=== PATIENT | female | born 1950 | race Caucasian/White ===

== ENCOUNTER 2022-07-15 09:20 | Inpatient (IN) ==
[2022-07-15 09:57] LABS: Basophils # (auto) 0.07 K/uL (0-0.2); Basophils % (auto) 0.4 %; Eosinophils # (auto) 0.07 K/uL (0-0.50); Eosinophils % (auto) 0.4 %; Hematocrit (blood only) 41.4 % (34.1-44.9); Hemoglobin 14.1 g/dl (12.0-16.0); Immature Granulocytes # (auto) 0.11 K/uL (0.00-0.02); Immature Granulocytes % (auto) 0.6 %; Lymphocytes % (auto) 10.3 %; Mean Corpuscular Hemoglobin 31.4 pg (25.0-34.0); Mean Corpuscular Hgb Conc 34.1 g/dL (32.0-36.0); Mean Corpuscular Volume 92.2 fL (80.0-100.0); Mean Platelet Volume 9.3 fL (9.4-12.3); Monocytes # (auto) 1.12 K/uL (0.24-0.82); Monocytes % (auto) 5.8 %; Neutrophils # (auto) 16.05 K/uL (1.4-6.5); Neutrophils % (auto) 82.5 %; Platelet Count 258 K/uL (130-400); RDW Coefficient of Variation 12.6 % (11.5-14.5); RDW Standard Deviation 42.2 fL (36.4-46.3); Red Blood Count 4.49 M/uL (3.93-5.22); White Blood Count 19.42 K/ul (4.8-10.8)
[2022-07-15] MEDS ORDERED: ASPIRIN CHEW 324 MG PO STA (10:02)
--- NOTE | 2022-07-15 10:16 | Emergency Department Note ---
Impression & Plan Chest pain, Pericarditis, Leukocytosis ED Provider Note NAME: FARHANA KELLY AGE: 71 SEX: F : 1950 ARRIVES VIA: Walk-In INFORMANT: Patient ED PROVIDER(S): Conor Rubin DO CHIEF COMPLAINT: chest pain HPI: Patient is a 71-year-old female who presents the ER for midsternal chest pain which she describes as a pressure. It is worse with breathing. It also ch anges slightly with positions. It started this morning around 530 and woke her up from sleep. She denies any current arm or jaw pain but when she woke up she did have some right arm pain which lasted for about 3 minutes. No belly pain, nausea, vomiting, or diarrhea. No upper respiratory symptoms. No dysuria, urgency, or frequency. No other exacerbating or remitting factors. She has never had this before. She has traveled from [place] down the [place] for the weekend. She does have a remote history of a questionable cancer. Patient denies diabetes, hypertension, hyperlipidemia, CAD, history of sudden at a young age, and smoking. ROS: See above HPI for pertinent positives & negatives. A total of 10 systems reviewed and were otherwise negative. PAST MEDICAL HISTORY:See Below PAST SURGICAL HISTORY:See Below FAMILY HISTORY:See Below SOCIAL HISTORY:See Below HOME MEDICATIONS:See Below ALLERGIES:See Below VITALS:See Below PHYSICAL EXAMINATION: GENERAL: Sitting up in bed, alert, well appearing, well nourished, no distress, non-toxic EYE EXAM: normal conjunctiva. OROPHARYNX:mucous membranes are moist NECK: supple, no nuchal rigidity, no adenopathy, non-tender CHEST: Mild reproducible anterior chest wall pain. LUNGS: Clear to auscultation. Normal chest wall mechanics HEART: no murmurs, S1 normal and S2 normal ABDOMEN: abdomen soft, non-tender, normo-active bowel sounds, no masses, no rebound or guarding. UPPER EXTREMITIES: upper extremities are grossly normal. LOWER EXTREMITIES: No pitting edema. NEURO EXAM: Normal sensorium, cranial nerves II-XII grossly intact, normal speech, no gross weakness of arms, no gross weakness of legs. MEDICAL DECISION MAKING: Patient is a 71-year-old female who presents ER for above-stated complaint. IV was established blood work was obtained. Labs show a leukocytosis of 19,000. No significant anemia. D-dimer was slightly up at 620. BMP with a mild hypokalemia at 3.2. Calcium slightly elevated 10.5. LFTs bilirubin and troponin were unremarkable. Lipase was normal. CT angio of the chest showed thickening of the pericardium. There was some SC depressions on the EKG likely consistent with a pericarditis. Patient was given Toradol IV and this did help out. She also given aspirin. Nitro did also help with the pain as well as nitro was given initially upon arrival. With the leukocytosis, SC depressions in the CT suggesting pericarditis [facility] Dr[facility] Donald Dickson. Did add on a Lyme sed and CRP which are pending. No recent vaccinations that she can think of. Patient was updated bedside. Triage Nursing notes reviewed. Limited review of prior medical records performed Vital Signs: reviewed and remarkable for HTN Differential diagnosis: Cardiac ischemia, aortic dissection, pulmonary embolism, pneumothorax, pneumonia, pericarditis, myocarditis, esophageal rupture, GERD, cholecystitis, pancreatitis, musculoskeletal, as well as other pathologies. ER treatment provided: See below Diagnostics interpreted by me: ECG: Sinus rhythm rate of 83 Normal axis No PVCs SC depression Nonspecific ST wave changes in the inferior leads QTC 427 Cardiac Monitoring: An order was placed for continuous cardiac monitoring. The monitor shows a rate of 90 with sinus rhythm. Laboratory studies: As stated above and show below. Imaging studies: CT angio of the chest suggest thickening of the pericardium Consultation(s): Discussed with going from [facility] service Procedures: none Critical Care: None Past Med/Surg History Social History Smoking Status: Never smoker Feels Safe at Home: Yes Results & Data (ED) Vital Signs Vital Signs - 24 hr 07/15/22 09:24 07/15/22 09:51 07/15/22 09:51 Temperature 36.7 C Temperature Source Oral Pulse Rate 93 H Pulse Rate [Apical] Pulse Rhythm [Apical] Respiratory Rate 18 Respiratory Effort / Characteristics Respiratory Depth Blood Pressure 146/93 H Blood Pressure [Left Arm] Blood Pressure Mean 110 Blood Pressure Mean [Left Arm] Pulse Oximetry 100 97 97 Oxygen Delivery Method Room Air Room Air Sepsis Recent Fever Within 48 Hours No Sepsis New/Unexplained Change in Mental Status No Sepsis Action Taken by Nursing No Action Required 07/15/22 10:20 07/15/22 10:35 07/15/22 11:20 Temperature Temperature Source Pulse Rate Pulse Rate [Apical] 78 75 Pulse Rhythm [Apical] Regular Respiratory Rate 16 16 Respiratory Effort / Characteristics Non-Labored Non-Labored Respiratory Depth Normal Normal Blood Pressure Blood Pressure [Left Arm] 142/81 H 123/71 120/70 Blood Pressure Mean Blood Pressure Mean [Left Arm] 101 88 86 Pulse Oximetry 97 96 Oxygen Delivery Method Room Air Room Air Sepsis Recent Fever Within 48 Hours Sepsis New/Unexplained Change in Mental Status Sepsis Action Taken by Nursing 07/15/22 11:40 07/15/22 11:52 Temperature Temperature Source Pulse Rate Pulse Rate [Apical] 83 Pulse Rhythm [Apical] Respiratory Rate 16 Respiratory Effort / Characteristics Non-Labored Respiratory Depth Normal Blood Pressure Blood Pressure [Left Arm] 108/67 115/69 Blood Pressure Mean Blood Pressure Mean [Left Arm] 80 84 Pulse Oximetry 96 Oxygen Delivery Method Room Air Sepsis Recent Fever Within 48 Hours Sepsis New/Unexplained Change in Mental Status Sepsis Action Taken by Nursing Laboratory Data Result diagrams: 07/15/22 09:45 07/15/22 09:45 Lab Results 07/15/22 07/15/22 07/15/22 Range/Units 09:45 09:45 09:45 WBC 19.42 H (4.8-10.8) K/ul RBC 4.49 (3.93-5.22) M/uL Hgb 14.1 (12.0-16.0) g/dl Hct 41.4 (34.1-44.9) % MCV 92.2 (80.0-100.0) fL MCH 31.4 (25.0-34.0) pg MCHC 34.1 (32.0-36.0) g/dL RDW Std Deviation 42.2 (36.4-46.3) fL RDW Coeff of Juan 12.6 (11.5-14.5) % Plt Count 258 (130-400) K/uL MPV 9.3 L (9.4-12.3) fL Immature Gran % (Auto) 0.6 % Neut % (Auto) 82.5 % Lymph % (Auto) 10.3 % [place] % (Auto) 5.8 % Eos % (Auto) 0.4 % Baso % (Auto) 0.4 % Neut # (Auto) 16.05 H (1.4-6.5) K/uL Lymph # (Auto) 2.00 (1.2-3.4) K/uL [place] # (Auto) 1.12 H (0.24-0.82) K/uL Eos # (Auto) 0.07 (0-0.50) K/uL Baso # (Auto) 0.07 (0-0.2) K/uL Immature Gran # (Auto) 0.11 H (0.00-0.02) K/uL ESR (0-30) mm/hr D-Dimer 620 H* (0-500) ug/L FEU Sodium 142 (136-145) mmol/L Potassium 3.2 L (3.5-5.1) mmol/L Chloride 102 (98-107) mmol/L Carbon Dioxide 31 (21-32) mmol/L Anion Gap 9 (3-11) BUN 18 (6-23) mg/dl Creatinine 0.89 (0.6-1.2) mg/dl Est Cr Clr Drug Dosing 51.4 ml/min Est GFR ( Amer) 75.0 ml/min Est GFR (Non-Af Amer) 64.7 ml/min BUN/Creatinine Ratio 20.2 H (10-20) Glucose 106 H (70-99(Fasting)) mg/dl Calcium 10.5 H (8.5-10.1) mg/dl Total Bilirubin 0.5 (0.2-1.0) mg/dl AST 23 (13-39) U/L ALT 15 (7-52) U/L Alkaline Phosphatase 88 (34-104) U/L Troponin I High Sens 3.6 (0-14) pg/ml Total Protein 7.4 (6.0-8.3) gm/dl Albumin 4.5 (3.4-5.0) gm/dl Globulin 2.9 (2.5-4.0) gm/dl Albumin/Globulin Ratio 1.6 (0.9-2) Lipase 31 (11-82) U/L 07/15/22 Range/Units 09:45 WBC (4.8-10.8) K/ul RBC (3.93-5.22) M/uL Hgb (12.0-16.0) g/dl Hct (34.1-44.9) % MCV (80.0-100.0) fL MCH (25.0-34.0) pg MCHC (32.0-36.0) g/dL RDW Std Deviation (36.4-46.3) fL RDW Coeff of Juan (11.5-14.5) % Plt Count (130-400) K/uL MPV (9.4-12.3) fL Immature Gran % (Auto) % Neut % (Auto) % Lymph % (Auto) % [place] % (Auto) % Eos % (Auto) % Baso % (Auto) % Neut # (Auto) (1.4-6.5) K/uL Lymph # (Auto) (1.2-3.4) K/uL [place] # (Auto) (0.24-0.82) K/uL Eos # (Auto) (0-0.50) K/uL Baso # (Auto) (0-0.2) K/uL Immature Gran # (Auto) (0.00-0.02) K/uL ESR 12 (0-30) mm/hr D-Dimer (0-500) ug/L FEU Sodium (136-145) mmol/L Potassium (3.5-5.1) mmol/L Chloride (98-107) mmol/L Carbon Dioxide (21-32) mmol/L Anion Gap (3-11) BUN (6-23) mg/dl Creatinine (0.6-1.2) mg/dl Est Cr Clr Drug Dosing ml/min Est GFR ( Amer) ml/min Est GFR (Non-Af Amer) ml/min BUN/Creatinine Ratio (10-20) Glucose (70-99(Fasting)) mg/dl Calcium (8.5-10.1) mg/dl Total Bilirubin (0.2-1.0) mg/dl AST (13-39) U/L ALT (7-52) U/L Alkaline Phosphatase (34-104) U/L Troponin I High Sens (0-14) pg/ml Total Protein (6.0-8.3) gm/dl Albumin (3.4-5.0) gm/dl Globulin (2.5-4.0) gm/dl Albumin/Globulin Ratio (0.9-2) Lipase (11-82) U/L Administered Medications Nitroglycerin (Nitroglycerin Sl 0.4 Mg/Tab Tab) 0.4 mg SL PRN PRN PRN Reason: Chest Pain Stop: 08/14/22 10:01 Last Admin: 07/15/22 11:20 Dose: 0.4 mg Documented By: Admin: 07/15/22 10:24 Dose: 0.4 mg Documented By: RADHA Discontinued Medications Aspirin (Aspirin Chew 324 Mg) 324 mg PO NOW STA Stop: 07/15/22 10:03 Last Admin: 07/15/22 10:23 Dose: 324 mg Documented By: RADHA Ketorolac Tromethamine (Ketorolac Tromethamine 15 Mg/Ml Vial) 15 mg IV NOW ONE Stop: 07/15/22 11:31 Last Admin: 07/15/22 11:36 Dose: 15 mg Documented By: RADHA Imaging Data Radiologist's Impression: Chest X-Ray 07/15/22 09:49 XR chest 1V portable CLINICAL HISTORY: Shortness of breath. Atypical chest pain. COMPARISON STUDY: No previous studies for comparison. FINDINGS: Lung volumes are normal. Lungs are clear. There is no pneumothorax or pleural effusion. Cardiac size is normal. Mediastinal contours are normal. There is no evidence for pulmonary edema. IMPRESSION: No acute cardiopulmonary findings. ACT 112: Negative or not required by law. Electronically signed by: Ric Castillo M.D. 07/15/2022 10:17 AM Chest CTA 07/15/22 11:42 CHEST CTA for PULMONARY ARTERIES CT DOSE: 269.04 mGy.cm HISTORY: Atypical chest pain. Chest pressure. TECHNIQUE: Multiaxial CT images of the chest were performed following the intravenous administration of contrast to evaluate the pulmonary arteries. Maximal intensity projection images were also obtained. A dose lowering technique was utilized adhering to the principles of ALARA. COMPARISON STUDY: Normal caliber thoracic aorta with no evidence for dissection. FINDINGS: Nondiagnostic evaluation the right lower lobe subsegmental pulmonary arteries due to the motion artifact. However, the remaining pulmonary arteries show no filling defects to suggest a pulmonary embolus. Normal caliber thoracic aorta with no evidence for a dissection. The heart is normal in size. There is no pleural effusions. Mild pericardial thickening is noted without significant pericardial fluid. Limited views of the upper abdomen demonstrate normal liver, spleen, and adrenal glands. Normal caliber esophagus. No mediastinal or hilar lymphadenopathy. There is an 11 mm cystic focus adjacent to the right C5-C6 neural foramen and a 2 cm cystic focus adjacent to the left T11-T12 neural foramen. These are likely benign and may represent small lateral thoracic meningocele or perineural cysts. These are of doubtful clinical significance. No fractures within the visualized osseous structures. No pneumothorax. A single partially opacified distal lingular bronchus. Mild dependent changes seen within the lung bases. Otherwise, no focal lung consolidations to suggest a pneumonia. No evidence for pulmonary edema. IMPRESSION: 1. No evidence for a pulmonary embolus. 2. Mild thickening of the pericardium. This may represent a pericarditis. No significant pericardial effusion at this time. 3. No focal lung consolidations to suggest a pneumonia. ACT 112: Negative or not required by law. Electronically signed by: Nirav Dutta M.D. 07/15/2022 1:38 PM Discharge Plan Visit Data Chief Complaint: Chest Pain Stated Complaint: CHEST PAIN ED Provider: Conor Rubin Discharge Problem: Chest pain, Pericarditis, Leukocytosis Forms Stand Alone Forms: [facility] Referrals Referrals: PCP,NO [Primary Care Provider] -
[2022-07-15 10:18] LABS: Albumin Globulin Ratio 1.6 (0.9-2); Albumin Level 4.5 gm/dl (3.4-5.0); BUN Creatinine Ratio 20.2 (10-20); Bilirubin,Total 0.5 mg/dl (0.2-1.0); Calcium 10.5 mg/dl (8.5-10.1); Creatinine Clr Calc Pharmacy 51.4 ml/min; Est GFR (Non-African American) 64.7 ml/min; Globulin 2.9 gm/dl (2.5-4.0); Potassium 3.2 mmol/L (3.5-5.1); Total Protein 7.4 gm/dl (6.0-8.3)
--- NOTE | 2022-07-15 10:19 | XRay Report ---
XR chest 1V portable CLINICAL HISTORY: Shortness of breath. Atypical chest pain. COMPARISON STUDY: No previous studies for comparison. FINDINGS: Lung volumes are normal. Lungs are clear. There is no pneumothorax or pleural effusion. Car diac size is normal. Mediastinal contours are normal. There is no evidence for pulmonary edema. IMPRESSION: No acute cardiopulmonary findings. ACT 112: Negative or not required by law. Electronically signed by: Ric Castillo M.D. 07/15/2022 10:17 AM
[2022-07-15 10:23] LABS: Troponin I High Sensitivity 3.6 pg/ml (0-14)
[2022-07-15] MEDS: NITROGLYCERIN SL 0.4 MG/TAB TAB SL PRN ×2 (10:24→11:20)
[2022-07-15] MEDS ORDERED: KETOROLAC TROMETHAMINE 15 MG/ML VIAL IV ONE (11:30)
[2022-07-15 11:36] LABS: D Dimer 620 ug/L FEU (0-500)
--- NOTE | 2022-07-15 13:40 | CT Scan Report ---
CHEST CTA for PULMONARY ARTERIES CT DOSE: 269.04 mGy.cm HISTORY: Atypical chest pain. Chest pressure. TECHNIQUE: Multiaxial CT images of the chest were performed following the intravenous administration of contrast to evaluate the pulmonary arteries. Maximal intensity projection images were also obtaine d. A dose lowering technique was utilized adhering to the principles of ALARA. COMPARISON STUDY: Normal caliber thoracic aorta with no evidence for dissection. FINDINGS: Nondiagnostic evaluation the right lower lobe subsegmental pulmonary arteries due to the mo tion artifact. However, the remaining pulmonary arteries show no filling defects to suggest a pulmona ry embolus. Normal caliber thoracic aorta with no evidence for a dissection. The heart is normal in s ize. There is no pleural effusions. Mild pericardial thickening is noted without significant pericard ial fluid. Limited views of the upper abdomen demonstrate normal liver, spleen, and adrenal glands. N ormal caliber esophagus. No mediastinal or hilar lymphadenopathy. There is an 11 mm cystic focus dann cent to the right C5-C6 neural foramen and a 2 cm cystic focus adjacent to the left T11-T12 neural fo ramen. These are likely benign and may represent small lateral thoracic meningocele or perineural cys ts. These are of doubtful clinical significance. No fractures within the visualized osseous structure s. No pneumothorax. A single partially opacified distal lingular bronchus. Mild dependent changes see n within the lung bases. Otherwise, no focal lung consolidations to suggest a pneumonia. No evidence for pulmonary edema. IMPRESSION: 1. No evidence for a pulmonary embolus. 2. Mild thickening of the pericardium. This may represent a pericarditis. No significant pericardial effusion at this time. 3. No focal lung consolidations to suggest a pneumonia. ACT 112: Negative or not required by law. Electronically signed by: Nirav Dutta M.D. 07/15/2022 1:38 PM
--- NOTE | 2022-07-15 13:40 | History & Physical Report ---
Date of Service July 15, 2022 Assessment & Plan (1) Pericarditis: (2) Chest pain: (3) HTN (hypertension): (4) HLD (hyperlipidemia): (5) Leukocytosis: Plan: - Admit to PCU/tele - CTA is negative for PE with elevated d-dimer 620 on admission, negative troponin at 3.6 but will trend enzymes. - CTA is concerning for pericarditis with inflammation seen on imaging, no recent viral illness that pt is aware of, no known tick bites, Lyme and tick borne panel are pending - 2D echo ordered - Consider cardiology consultation pending results - Checking CRP and ESR - WBC elevated at 19 K with a left shift but no other symptoms than the aforementioned chest pain. Will trend. Afebrile. No respiratory or GI symptoms suspicious for other infection. Follow to ensure improves. - Pain ? worse for her while lying down, improved after aspirin, nitro and futher improved with toradol IV given in the ER. - Start scheduled ibuprofen and colchicine for pericarditis treatment - Follow mag, added - A1C and lipid panel for completeness - EKG reviewed, repeat in am - Cont HCTZ and losartan as per her home meds. Missed morning meds today. - Cont rosuvastain for HLD - Increase pantoprazole while on NSAIDs and colchicine. - Potassium 40 meq now for K+ 3.2 on admission - Allow diet DVT Ppx: teds, scds, ambulatory CODE: Full code Dispo: Observation on tele History of Present Illness Chief Complaint: Chest pain Primary Care Provider: NO PCP This is a 71 yo F with PMhx of HTN, HLD with recently started rosuvastatin in February with significant improvement, Cancerous nasal polyp in 2003 s/p removal, and hx of palpitations which she has been following with cardiology for. She and her are in town from [place] to visit her 100 yo Father. Mrs. Ochoa reports this morning woke up with chest pain in the middle chest region with tingling in the right arm. The pain was constant rated 7/10, and lasted several hours until came to the ER and improved with nitroglycerin. She thought that her arm pain was due to clothing getting wrapped up around her arm while sleeping. This arm pain improved with getting up and showering this morning. She admits to shortness of breath on exertion this morning a few times, lightheadedness and dizziness. She states this improved with standing still and waiting a few minutes. Denies palpitations. Denies ever having this type of pain before. Follows with Dr. Dalton Matias, cardiology, once per year and last saw him in June. She started seeing him in 2003 or 2004 due to palpitations when she was observed in the hospital at that time. She is due for a exercise stress test next year as this is performed every other year, previously she has done well on stress tests. No new medications. She has had several trials on different statins and had to be switched off because of dizziness, but has been tolerating rosuvastatin 10 mg daily well. She does not exercise routinely but reports an active lifestyle. Does not smoke or chew tobacco. No hx of ilicit drug use. Allergies: oak pollen, medical tape, statins Surgical Hx: D&C prior to hysterectomy in May 1995, Cataract surgery in May 2011 and January 2017, Family Hx: HTH, HLD Allergies Allergy/AdvReac Type Severity Reaction Status Date / Time adhesive tape Allergy Mild Rash Verified 07/15/22 14:56 oak pollen Allergy Mild Uncoded 07/15/22 14:56 statin AdvReac Mild dizziness Uncoded 07/15/22 14:56 Home Medications Medication Instructions Recorded Confirmed Type Centrum Women 1 tab PO DAILY 07/15/22 07/15/22 History ascorbic acid (vitamin C) 125 mg 125 mg PO DAILY 07/15/22 07/15/22 History chewable tablet (Vitamin C) aspirin 81 mg tablet 81 mg PO DAILY 07/15/22 07/15/22 History azelastine 137 mcg (0.1 %) nasal 1 spray intranasal BID 07/15/22 07/15/22 History spray aerosol calcium carbonate 600 mg-vitamin 1 tab PO DAILY 07/15/22 07/15/22 History D3 5 mcg (200 unit) tablet clobetasol 0.05 % topical ointment 1 applic topical DAILY PRN Rash 07/15/22 07/15/22 History fluticasone propionate 50 1 spray intranasal BID 07/15/22 07/15/22 History mcg/actuation nasal spray,suspension hydrochlorothiazide 12.5 mg tablet 12.5 mg PO DAILY 07/15/22 07/15/22 History losartan 50 mg tablet 50 mg PO DAILY 07/15/22 07/15/22 History magnesium oxide 400 mg PO DAILY 07/15/22 07/15/22 History pantoprazole 40 mg tablet,delayed 40 mg PO DAILY 07/15/22 07/15/22 History release psyllium husk 0.4 gram capsule 0.4 g PO BID 07/15/22 07/15/22 History (Metamucil) rosuvastatin 10 mg tablet 10 mg PO DAILY 07/15/22 07/15/22 History vitamin E 400 unit tablet 400 unit PO DAILY 07/15/22 07/15/22 History Past Med/Surg History Medical History HLD (hyperlipidemia) HTN (hypertension) Palpitations Surgical History Hx of hysterectomy Hx of nasal polypectomy Family History Other Dyslipidemia Hypertension Social History Smoking Status: Never smoker Hx Alcohol Use: No Hx Substance Use: No Current Living Situation: Spouse Feels Safe at Home: Yes Review of Systems Review of Systems: Constitutional: No fever, sweats or chills Eyes: No diplopia, no worsening or blurred vision ENT: normal hearing, no trouble swallowing Respiratory: No cough, sputum, dyspnea at rest or on exertion Cardiovascular: No current chest pain, tightness or palpitations. See HPI. Abdomen: No pain, nausea, vomiting, diarrhea or constipation Musculoskeletal: No joint pain, calf pain, swelling Neurologic: No weakness, numbness/tingling, or balance problems Psychiatric: No anxiety or depression Skin: No rash or itch Physical Exam Physical Exam: General: awake, alert, no apparent distress, + appears younger than stated age Head: Normocephalic, atraumatic ENT: PERRL, EOMI, no pharyngeal exudate, mucous membranes moist Chest: Clear to auscultation, on room air, no adventitious breath sounds Cardiac: No pain with palpation of the chest wall, No pain with leaning forward, + pain with taking deep breaths, Regular rate and rhythm, no murmur, no JVD, normal peripheral pulses, good capillary refill Abdominal: NABS x 4 quadrants, soft, nondistended, nontender to palpation, no rebound or guarding Extremities: Normal inspection, no peripheral edema or erythema, calfs nontender to palpation Psych: Normal mood and affect Neuro: AAO x 3, strength intact bilaterally and rated 5/5, no motor deficits, speech is clear, no peripheral sensory deficits Results & Data Results & Data ([facility]) Vital Signs (Past 12 Hours) Vital Signs Temp Pulse Pulse Resp BP BP Pulse Ox 07/15/22 11:52 83 16 115/69 96 07/15/22 11:40 108/67 07/15/22 11:20 120/70 07/15/22 10:35 75 16 123/71 96 07/15/22 10:20 78 16 142/81 H 97 07/15/22 09:51 97 07/15/22 09:51 97 07/15/22 09:24 36.7 C 93 H 18 146/93 H 100 O2 Del Method 07/15/22 11:52 Room Air 07/15/22 11:40 07/15/22 11:20 07/15/22 10:35 Room Air 07/15/22 10:20 Room Air 07/15/22 09:51 07/15/22 09:51 Room Air 07/15/22 09:24 Room Air Laboratory Results 07/15/22 07/15/22 07/15/22 09:45 09:45 09:45 WBC RBC Hgb Hct MCV MCH MCHC RDW Std Deviation RDW Coeff of Juan Plt Count MPV Immature Gran % (Auto) Neut % (Auto) Lymph % (Auto) [place] % (Auto) Eos % (Auto) Baso % (Auto) Neut # (Auto) Lymph # (Auto) [place] # (Auto) Eos # (Auto) Baso # (Auto) Immature Gran # (Auto) ESR 12 D-Dimer 620 H* Sodium Potassium Chloride Carbon Dioxide Anion Gap BUN Creatinine Est Cr Clr Drug Dosing Est GFR ( Amer) Est GFR (Non-Af Amer) BUN/Creatinine Ratio Glucose Calcium Total Bilirubin AST ALT Alkaline Phosphatase Troponin I High Sens C-Reactive Protein < 0.50 Total Protein Albumin Globulin Albumin/Globulin Ratio Lipase 07/15/22 07/15/22 09:45 09:45 WBC 19.42 H RBC 4.49 Hgb 14.1 Hct 41.4 MCV 92.2 MCH 31.4 MCHC 34.1 RDW Std Deviation 42.2 RDW Coeff of Juan 12.6 Plt Count 258 MPV 9.3 L Immature Gran % (Auto) 0.6 Neut % (Auto) 82.5 Lymph % (Auto) 10.3 [place] % (Auto) 5.8 Eos % (Auto) 0.4 Baso % (Auto) 0.4 Neut # (Auto) 16.05 H Lymph # (Auto) 2.00 [place] # (Auto) 1.12 H Eos # (Auto) 0.07 Baso # (Auto) 0.07 Immature Gran # (Auto) 0.11 H ESR D-Dimer Sodium 142 Potassium 3.2 L Chloride 102 Carbon Dioxide 31 Anion Gap 9 BUN 18 Creatinine 0.89 Est Cr Clr Drug Dosing 51.4 Est GFR ( Amer) 75.0 Est GFR (Non-Af Amer) 64.7 BUN/Creatinine Ratio 20.2 H Glucose 106 H Calcium 10.5 H Total Bilirubin 0.5 AST 23 ALT 15 Alkaline Phosphatase 88 Troponin I High Sens 3.6 C-Reactive Protein Total Protein 7.4 Albumin 4.5 Globulin 2.9 Albumin/Globulin Ratio 1.6 Lipase 31 Diagnostic Findings Chest X-Ray 07/15/22 09:49 XR chest 1V portable CLINICAL HISTORY: Shortness of breath. Atypical chest pain. COMPARISON STUDY: No previous studies for comparison. FINDINGS: Lung volumes are normal. Lungs are clear. There is no pneumothorax or pleural effusion. Cardiac size is normal. Mediastinal contours are normal. There is no evidence for pulmonary edema. IMPRESSION: No acute cardiopulmonary findings. ACT 112: Negative or not required by law. Electronically signed by: Ric Castillo M.D. 07/15/2022 10:17 AM Chest CTA 07/15/22 11:42 CHEST CTA for PULMONARY ARTERIES CT DOSE: 269.04 mGy.cm HISTORY: Atypical chest pain. Chest pressure. TECHNIQUE: Multiaxial CT images of the chest were performed following the intravenous administration of contrast to evaluate the pulmonary arteries. Maximal intensity projection images were also obtained. A dose lowering technique was utilized adhering to the principles of ALARA. COMPARISON STUDY: Normal caliber thoracic aorta with no evidence for dissection. FINDINGS: Nondiagnostic evaluation the right lower lobe subsegmental pulmonary arteries due to the motion artifact. However, the remaining pulmonary arteries show no filling defects to suggest a pulmonary embolus. Normal caliber thoracic aorta with no evidence for a dissection. The heart is normal in size. There is no pleural effusions. Mild pericardial thickening is noted without significant pericardial fluid. Limited views of the upper abdomen demonstrate normal liver, spleen, and adrenal glands. Normal caliber esophagus. No mediastinal or hilar lymphadenopathy. There is an 11 mm cystic focus adjacent to the right C5-C6 neural foramen and a 2 cm cystic focus adjacent to the left T11-T12 neural foramen. These are likely benign and may represent small lateral thoracic meningocele or perineural cysts. These are of doubtful clinical significance. No fractures within the visualized osseous structures. No pneumothorax. A single partially opacified distal lingular bronchus. Mild dependent changes seen within the lung bases. Otherwise, no focal lung consolidations to suggest a pneumonia. No evidence for pulmonary edema. IMPRESSION: 1. No evidence for a pulmonary embolus. 2. Mild thickening of the pericardium. This may represent a pericarditis. No significant pericardial effusion at this time. 3. No focal lung consolidations to suggest a pneumonia. ACT 112: Negative or not required by law. Electronically signed by: Nirav Dutta M.D. 07/15/2022 1:38 PM ECG Additional Comments: 15-JUL-2022 09:28:26 [facility]-EDSTAT ROUTINE RETRIEVAL Poor data quality, interpretation may be adversely affected Normal sinus rhythm Normal ECG No previous ECGs available 25mm/s10mm/[id number] 241CID: [id number] by: REFERRED SELF Unconfirmed Vent. rate 83 BPM WI interval 176 ms QRS duration 80 ms QT/QTc 364/427 ms Code Status & VTE Plan Code Status Full code: Discussed with the patient and her at bedside Supervising Physician Co-Signing Physician Notes Patient was seen and examined independently at bedside. Chart reviewed. Case discussed with Bharati STEWART and agree with the documentation above. In summary, this is a 71 year old female who presented to the ED with central chest pain since this morning, pleuritic, with no radiation and no associated factors. No tenderness on palpation. Pain significantly improved after full dose aspirin, SL nitrox2 and iv toradol in ED. Patient is from [place] and visiting his dad here over the weekend. Fairly healthy at baseline with no angina, GUPTA or other issues. Follows with cardiology and has no known cardiac issues. Last echo few weeks back, last stress test last June. Trop x1 negative, EKG unremarkable. Labs otherwise unremarkable except for leucocytosis. CTA with no PE, PNA, no effusion but mild pericardial thickening, possible pericarditis. Agree with observation, tele, serial trop, echo, repeat EKG in am, trial of ibuprofen and colchicine for suspected pericarditis. Increase PPI to bid while o n NSAIDs. F/u on remaining labs including inflammatory markers and lyme disease. Consider cardio consult if concerns. Work up also shows unexplained leucocytosis but afebrile, no evidence of infection and well looking- Monitor off of antibiotics and recheck in am, possibly reactive. Rest as per the note above.
[2022-07-15 14:48] LABS: Lyme Ab IgG w/WB Rflx Negative (Negative); Lyme Ab IgM w/WB Rflx Negative (Negative)
[2022-07-15] MEDS ORDERED: POTASSIUM CHLORIDE CRTAB 20 MEQ TABCR PO STA (14:54)
[2022-07-15] MEDS ORDERED: ACETAMINOPHEN 325 MG TAB ONE (17:32)
[2022-07-15] MEDS ORDERED: POTASSIUM CHLORIDE 10 MEQ TABCR PO ONE (17:34)
--- NOTE | 2022-07-15 17:57 | Electrocardiogram Report ---
Test Reason : Blood Pressure : / mmHG Vent. Rate : 083 BPM Atrial Rate : 083 BPM P-R Int : 176 ms QRS Dur : 080 ms QT Int : 364 ms P-R-T Axes : 072 052 078 degrees QTc Int : 427 ms Poor data quality, interpretation may be adversely affected Normal sinus rhythm Normal ECG No previous ECGs available Confirmed by Wolf Nguyen ([id number]) on 07/15/2022 5:57:29 PM Referred By: REFERRED SELF Confirmed By:Jakub Nguyen
[2022-07-15] MEDS ORDERED: ONDANSETRON INJ 2 MG/ML 2 ML VIAL IV PRN (18:19)
[2022-07-15] MEDS ORDERED: ACETAMINOPHEN 325 MG TAB PO PRN (18:19)
[2022-07-15] MEDS ORDERED: CLOBETASOL PROPIONATE 0.05% OINT 15 GM TUBE EXT PRN (18:34)
[2022-07-15] MEDS: COLCHICINE 0.6 MG TAB PO SCH (20:12)
[2022-07-15] MEDS: PSYLLIUM or GUAR GUM FIBER POWDER PACKET PO SCH (20:13)
[2022-07-15] MEDS: FLUTICASONE PROPIONATE NA SPR 16 GM BTL SCH (20:13)
[2022-07-15] MEDS: LOSARTAN POTASSIUM 50 MG TAB PO SCH (20:13)
[2022-07-15] MEDS: MAGNESIUM OXIDE 400 MG TAB PO SCH (20:13)
[2022-07-15] MEDS: IBUPROFEN 600 MG TAB PO SCH (21:00)
[2022-07-15] MEDS: AZELASTINE HCL 0.1% NASAL 200 SPRAYS/27,400 MCG BTL SCH (21:18)
[2022-07-15] MEDS: PANTOprazole 40 MG TAB PO SCH (21:18)
[2022-07-16 05:54] LABS: Hematocrit (blood only) 31.6 % (34.1-44.9); Hemoglobin 11.1 g/dl (12.0-16.0); Mean Corpuscular Hemoglobin 31.2 pg (25.0-34.0); Mean Corpuscular Hgb Conc 35.1 g/dL (32.0-36.0); Mean Corpuscular Volume 88.8 fL (80.0-100.0); Mean Platelet Volume 9.3 fL (9.4-12.3); Platelet Count 190 K/uL (130-400); RDW Coefficient of Variation 12.6 % (11.5-14.5); RDW Standard Deviation 41.7 fL (36.4-46.3); Red Blood Count 3.56 M/uL (3.93-5.22); White Blood Count 7.32 K/ul (4.8-10.8)
[2022-07-16 06:32] LABS: Albumin Globulin Ratio 1.6 (0.9-2); Albumin Level 3.6 gm/dl (3.4-5.0); Calcium 9.2 mg/dl (8.5-10.1); Chol HDL Ratio 2.3 (0-5); Creatinine Clr Calc Pharmacy 60.2 ml/min; Est GFR (African American) 90.8 ml/min; Est GFR (Non-African American) 78.4 ml/min; Globulin 2.2 gm/dl (2.5-4.0); Magnesium 1.8 mg/dl (1.7-2.4); Potassium 3.8 mmol/L (3.5-5.1); Total Protein 5.8 gm/dl (6.0-8.3)
[2022-07-16] MEDS: IBUPROFEN 600 MG TAB PO SCH ×2 (06:37→13:53)
[2022-07-16] MEDS: COLCHICINE 0.6 MG TAB PO SCH ×3 (08:25→11:25)
[2022-07-16] MEDS: PANTOprazole 40 MG TAB PO SCH (08:26)
[2022-07-16] MEDS: PSYLLIUM or GUAR GUM FIBER POWDER PACKET PO SCH (08:28)
[2022-07-16] MEDS: FLUTICASONE PROPIONATE NA SPR 16 GM BTL SCH (08:29)
[2022-07-16] MEDS: AZELASTINE HCL 0.1% NASAL 200 SPRAYS/27,400 MCG BTL SCH (08:29)
[2022-07-16] MEDS: LOSARTAN POTASSIUM 50 MG TAB PO SCH (08:29)
[2022-07-16] MEDS: MAGNESIUM OXIDE 400 MG TAB PO SCH (08:29)
--- NOTE | 2022-07-16 08:53 | Electrocardiogram Report ---
Test Reason : Blood Pressure : / mmHG Vent. Rate : 070 BPM Atrial Rate : 070 BPM P-R Int : 198 ms QRS Dur : 084 ms QT Int : 428 ms P-R-T Axes : 077 072 072 degrees QTc Int : 462 ms Normal sinus rhythm Normal ECG When compared with ECG of 15-JUL-2022 09:28, ST elevation now present in Inferior leads ST no longer depressed in Anterior leads Confirmed by Wolf Nguyen ([id number]) on 07/16/2022 8:53:03 AM Referred By: REFERRED SELF Confirmed By:Jakub Nguyen
[2022-07-16] MEDS ORDERED: MULTIVITAMIN TAB PO SCH (09:00)
[2022-07-16] MEDS ORDERED: TOCOPHERYL, DL-ALPHA 400 UNITS 180 MG CAP PO SCH (09:00)
[2022-07-16] MEDS ORDERED: CALCIUM 600MG + VIT D 400 IU TAB PO SCH (09:00)
[2022-07-16] MEDS ORDERED: ROSUVASTATIN CALCIUM 10 MG TAB PO SCH (09:00)
[2022-07-16] MEDS ORDERED: ASPIRIN 81 MG ECTAB PO SCH (09:00)
[2022-07-16] MEDS ORDERED: hydroCHLOROthiazide 25 MG TAB PO SCH (09:00)
[2022-07-16] MEDS ORDERED: ASCORBIC ACID 500 MG TAB PO SCH (09:00)
[2022-07-16] MEDS ORDERED: ALUMINUM/MAGNESIUM/SIMETH (MAALOX MAX) 30 ML UDC PO STA (10:10)
[2022-07-16 10:25] LABS: Estimated Average Glucose 128 mg/dl; Hemoglobin A1C 6.1 % (4.5-5.6)
--- NOTE | 2022-07-16 14:02 | Discharge Summary ---
Discharge Summary Date of Service July 16, 2022 Notes For Next Care Provider Patient is to follow-up with her ornamental iron worker for continued management of pericarditis. Medication Changes From Visit Patient was started on colchicine 0.6 mg twice daily for 3 months She was also started on ibuprofen 600 mg 3 times daily for 1 month. Her ornamental iron worker can taper her ibuprofen dose weekly with resolution of symptoms. Patient to take pantoprazole 40 mg twice daily while on ibuprofen. May hold off aspirin aspirin while on ibuprofen Admission HPI Per Admitting Provider This is a 71 yo F with PMhx of HTN, HLD with recently started rosuvastatin in February with significant improvement, Cancerous nasal polyp in 2003 s/p removal, and hx of palpitations which she has been following with cardiology for. She and her are in town from [place] to visit her 100 yo Father. Mrs. Ochoa reports this morning woke up with chest pain in the middle chest region with tingling in the right arm. The pain was constant rated 7/10, and lasted several hours until came to the ER and improved with nitroglycerin. She thought that her arm pain was due to clothing getting wrapped up around her arm while sleeping. This arm pain improved with getting up and showering this morning. She admits to shortness of breath on exertion this morning a few times, lightheadedness and dizziness. She states this improved with standing still and waiting a few minutes. Denies palpitations. Denies ever having this type of pain before. Follows with Dr. Dalton Matias, cardiology, once per year and last saw him in June. She started seeing him in 2003 or 2004 due to palpitations when she was observed in the hospital at that time. She is due for a exercise stress test next year as this is performed every other year, previously she has done well on stress tests. No new medications. She has had several trials on different statins and had to be switched off because of dizziness, but has been tolerating rosuvastatin 10 mg daily well. She does not exercise routinely but reports an active lifestyle. Does not smoke or chew tobacco. No hx of ilicit drug use. Allergies: oak pollen, medical tape, statins Surgical Hx: D&C prior to hysterectomy in May 1995, Cataract surgery in May 2011 and January 2017, Family Hx: HTH, HLD Admission Exam Per Admitting Provider General: awake, alert, no apparent distress, + appears younger than stated age Head: Normocephalic, atraumatic ENT: PERRL, EOMI, no pharyngeal exudate, mucous membranes moist Chest: Clear to auscultation, on room air, no adventitious breath sounds Cardiac: No pain with palpation of the chest wall, No pain with leaning forward, + pain with taking deep breaths, Regular rate and rhythm, no murmur, no JVD, normal peripheral pulses, good capillary refill Abdominal: NABS x 4 quadrants, soft, nondistended, nontender to palpation, no rebound or guarding Extremities: Normal inspection, no peripheral edema or erythema, calfs nontender to palpation Psych: Normal mood and affect Neuro: AAO x 3, strength intact bilaterally and rated 5/5, no motor deficits, speech is clear, no peripheral sensory deficits Principal Dx & Hospital Course #1 = Principal Diagnosis (1) Pericarditis: (2) Chest pain: (3) HTN (hypertension): (4) HLD (hyperlipidemia): (5) Leukocytosis: Patient presented with central chest pain. Reported chest pain was worse with deep breath EKG on admission noted NSR, no significant ST-T changes. No prior EKG to compare as patient is visiting from out of town CTA is negative for PE with elevated d-dimer 620 on admission CTA is concerning for pericarditis with inflammation seen on imaging No recent viral illness No known tick bites. Lyme screening was negative 2 Echo done today showed normal LV with mild concentric LVH, EF of 55 to 60%, no segmental left ventricular wall motion abnormalities, grade 2 diastolic dysfunction, no significant valvular pathology, small loculated anterior apical pericardial effusion is present without hemodynamic significance. Patient was evaluated by ornamental iron worker Dr Dickson Discussed with him. He recommends discharging patient on colchicine 0.6 mg twice daily for 3 months, ibuprofen 600 mg 3 times daily for 1 month. Patient advised to change her pantoprazole 40 mg to twice a day while on ibuprofen. Patient is to follow-up with her ornamental iron worker in [place]. Legal Instructor may taper ibuprofen with resolution of symptoms. Patient's hemoglobin A1c was 6.1. Hence, prediabetes. Patient to continue her rosuvastatin Continue other home medication including losartan, hydrochlorothiazide Discharge Exam Constitutional + well hydrated; no acute distress Eyes PERRL, conjunctivae normal, anicteric sclerae ENMT external ear and nose normal, oropharynx normal Respiratory normal respiratory effort, lungs clear to auscultation Cardiovascular RRR, no murmur, no edema Gastrointestinal (Abdomen) normal bowel sounds, soft, nontender, no hepatosplenomegaly Musculoskeletal no cyanosis or clubbing, extremities motor strength 5/5 Neurologic PERRL, EOMI, accommodation nl, no face palsy, no dysarthria Psychiatric A+Ox3, euthymic affect Updated Medication List Medication Instructions Recorded Confirmed Type Centrum Women 1 tab PO DAILY 07/15/22 07/15/22 History ascorbic acid (vitamin C) 125 mg 125 mg PO DAILY 07/15/22 07/15/22 History chewable tablet (Vitamin C) aspirin 81 mg tablet 81 mg PO DAILY 07/15/22 07/15/22 History azelastine 137 mcg (0.1 %) nasal 1 spray intranasal BID 07/15/22 07/15/22 History spray aerosol calcium carbonate 600 mg-vitamin 1 tab PO DAILY 07/15/22 07/15/22 History D3 5 mcg (200 unit) tablet clobetasol 0.05 % topical ointment 1 applic topical DAILY PRN Rash 07/15/22 07/15/22 History fluticasone propionate 50 1 spray intranasal BID 07/15/22 07/15/22 History mcg/actuation nasal spray,suspension hydrochlorothiazide 12.5 mg tablet 12.5 mg PO DAILY 07/15/22 07/15/22 History losartan 50 mg tablet 50 mg PO DAILY 07/15/22 07/15/22 History magnesium oxide 400 mg PO DAILY 07/15/22 07/15/22 History psyllium husk 0.4 gram capsule 0.4 g PO BID 07/15/22 07/15/22 History (Metamucil) rosuvastatin 10 mg tablet 10 mg PO DAILY 07/15/22 07/15/22 History vitamin E 400 unit tablet 400 unit PO DAILY 07/15/22 07/15/22 History colchicine 0.6 mg tablet (Colcrys) 0.6 mg PO BID 90 days #180 tabs 07/16/22 Rx ibuprofen 600 mg tablet 600 mg PO Q8 30 days #90 tabs 07/16/22 Rx pantoprazole 40 mg tablet,delayed 40 mg PO BID 30 days #60 tabs 07/16/22 Rx release Hospital Stay Data Consultations 07/15/22 13:53 ED Decision to Admit Stat 07/16/22 07:35 Consult Cardiology Routine Diagnostic Imagining Performed 07/15/22 11:42 CT angio chest PE protocol Stat Nondiagnostic evaluation the right lower lobe subsegmental pulmonary arteries due to the motion artifact. However, the remaining pulmonary arteries show no filling defects to suggest a pulmonary embolus. Normal caliber thoracic aorta with no evidence for a dissection. The heart is normal in size. There is no pleural effusions. Mild pericardial thickening is noted without significant pericardial fluid. Limited views of the upper abdomen demonstrate normal liver, spleen, and adrenal glands. Normal caliber esophagus. No mediastinal or hilar ly mphadenopathy. There is an 11 mm cystic focus adjacent to the right C5-C6 neural foramen and a 2 cm cystic focus adjacent to the left T11-T12 neural foramen. These are likely benign and may represent small lateral thoracic meningocele or perineural cysts. These are of doubtful clinical significance. No fractures within the visualized osseous structures. No pneumothorax. A single partially opacified distal lingular bronchus. Mild dependent changes seen within the lung bases. Otherwise, no focal lung consolidations to suggest a pneumonia. No evidence for pulmonary edema. IMPRESSION: 1. No evidence for a pulmonary embolus. 2. Mild thickening of the pericardium. This may represent a pericarditis. No significant pericardial effusion at this time. 3. No focal lung consolidations to suggest a pneumonia. Pending Results Patient Have Any Pending Studies at Discharge: No Discharge Instructions Given to Patient (Per Discharging Provider) Mrs Lower. You came to the hospital complaining of constant chest pain worse with deep breath, different from your usual reflux symptoms. You were evaluated and noted to findings on CT and Echocardiogram were suggestive of pericarditis which is inflammation of the lining covering the heart. You were evaluated by Legal Instructor who recommends Colchicine 0.6mg twice a day for 3 months and ibuprofen 600mg three times a day for 1 month. Please take ibuprofen with meals You may hold off taking your Aspirin 81mg while you are on Ibuprofen to minimize side effects until follow up with your Legal Instructor. Please ensure you follow up with your Legal Instructor on return home. With resolution of symptoms, your Legal Instructor may taper the dose of ibuprofen weekly as he sees fit. While on ibuprofen, please take your pantoprazole twice daily. It was a pleasure taking care of you Total Time Total Time Spent Total Time Spent (In Minutes): 50 Total Time Includes: Examination of the Patient, Discharge Planning, Medication Reconciliation and Communication With Other Providers
== END 2022-07-16 15:33 | disposition home or self-care (01) | DRG 316 ==
LOC: ED 09:20 → 2S 14:24 → SUATTDRO 14:24 → 2S 17:54
DX: I10 Essential (primary) hypertension; Z85.22 Personal history of malignant neoplasm of nasal cavities, middle ear, and accessory sinuses; E78.5 Hyperlipidemia, unspecified; I31.9 Disease of pericardium, unspecified; Z79.82 Long term (current) use of aspirin